=== PATIENT | female | born 1980 | race Caucasian/White ===

== ENCOUNTER → 2016-12-14 | Outpatient (CLI) | payer BC | LOC: MC.RAD 09:45 | DX: D24.2 Benign neoplasm of left breast (principal) ==

== ENCOUNTER → 2022-06-21 | Outpatient (CLI) | payer BC | LOC: MC.RAD 12:45 | DX: N63.11 Unspecified lump in the right breast, upper outer quadrant (principal) ==

== ENCOUNTER → 2022-07-05 | Outpatient (CLI) | payer OTHER | LOC: MC.RAD 07-04 08:00 | DX: N63.10 Unspecified lump in the right breast, unspecified quadrant (principal) ==